=== PATIENT | female | born 1990 | race Caucasian/White ===

== ENCOUNTER 2021-07-30 14:40 | Outpatient (CLI) | payer OTHER, SELFPAY ==
--- NOTE | 2021-07-30 14:58 | OB.TRI.NOTE ---
HPI - General HPI Narrative DOROTHEA MANDUJANO, is a 31 F at 30.5 who presents with N/V and inability to keep any food or liquids down in 24 hours. COVID-19 positive on 07/26/21. She reports feeling shaky and dizzy. Has vomited bile several times today. Highest temperature has been 99.9 F. Positive movement. No obstetrical concerns today. PFSH PFSH Home Medications citalopram [Celexa] 30 mg PO DAILY 07/30/21 [History Last Taken 07/29/21 21:00] Allergy/AdvReac Type Severity Reaction Status Date / Time azithromycin [From Zithromax] Allergy Hives Verified 07/30/21 15:34 codeine Allergy Hives Verified 07/30/21 15:34 hydrocodone bitartrate Allergy Hives Verified 07/30/21 15:34 [From Vicodin] ketamine Allergy Anaphylaxis Verified 07/30/21 15:34 ketorolac tromethamine Allergy Anaphylaxis Verified 07/30/21 15:34 [From Toradol] meperidine HCl [From Demerol] Allergy Anaphylaxis Verified 07/30/21 15:34 oxycodone HCl [From Percocet] Allergy Hives Verified 07/30/21 15:34 propoxyphene napsylate Allergy Hives Verified 07/30/21 15:34 [From Darvocet-N] Sulfa (Sulfonamide Allergy Hives Verified 07/30/21 15:34 Antibiotics) Social History Smoking Status: Never smoker ROS ROS Narrative COVID-19 - Positive 07/26/21 Eyes Eyes: Denies blurry vision Cardiovascular Cardiovascular: Reports none; Denies chest pain at rest, chest pain with activity or dizziness Respiratory/Chest Respiratory/Chest: Denies cough or dyspnea Gastrointestinal Gastrointestinal: Reports nausea, taste impaired and vomiting Genitourinary Genitourinary: Denies dysuria Musculoskeletal Musculoskeletal: Reports none Integumentary Integumentary: Reports none; Denies rash Psychiatric Psychiatric: Reports none Physical Exam Const alert General Appearance: cooperative Orientation / Consciousness: awake Exam Limitations: no limitations HEENT normocephalic Eyes General Eye: normal appearance of both eyes Neck full ROM Chest inspection of chest normal Resp normal respiratory effort and normal air movement Effort and Inspection: symmetric chest movement and actively coughing Cardio regular rate GI Inspection: and other Back/Spine normal ROM Extremity full ROM, normal capillary refill and no calf tenderness Skin no rashes or lesions noted Neuro oriented x3 and CN's II-XII intact bilaterally Psych mental status grossly normal NST FHR Rate Baby A Baseline: 150 Variability:: Moderate Accelerations:: 15 x 15 Decelerations:: None NST Reactive:: Yes Uterine Activity:: None noted Assessment & Plan (1) 30 weeks gestation of : (2) COVID-19 affecting , antepartum: (3) Nausea and vomiting: PLAN: Start IV - Normal Saline 1000 mg bolus IV Labs- within normal limits Zofran 4 mg IV x1 now NST- Reactive Dr. Angel notified and involved in plan of care
[2021-07-30 15:29] VITALS: BMI 46.6
[2021-07-30] MEDS: 0.9% Normal Saline 1,000 ML 999 ML IV ×2 (15:45→17:32)
[2021-07-30] MEDS: Ondansetron 4 MG/2 ML Vial IV (15:53)
[2021-07-30 15:58] VITALS: PULSE 108; TEMP 36.3
[2021-07-30 16:00] VITALS: BP 132/65; PULSE 108
[2021-07-30 16:05] LABS: Absolute Neutrophil Count 3.6 X10^3/uL (2.0-7.7); Basophil# 0.02 X10^3/uL; Basophil% 0.4 % (0-1); Hematocrit 35.2 % (37-47); Hemoglobin 11.9 g/dL (12.0-15.0); Lymphocyte % 10.8 % (19-41); Mean Corp Hgb Conc 33.8 g/dL (32-36); Mean Corpuscular Hgb 29.3 pg (27.0-32.0); Mean Corpuscular Volume 86.7 fL (81-99); Mean Platelet Vol. 11.6 fl (6.2-12.0); Monocyte# 0.25 X10^3/uL; Monocyte% 5.4 % (0-10); NRBC Flagged by Analyzer 0 % (0-5); Neutrophil # 3.64 X10^3/uL (2.7-7.7); Neutrophil % 78.9 % (47-70); POSITIVE COUNT YES; POSITIVE DIFFERENTIAL YES; Platelet Count 117 K/mm3 (150-450); RBC Distribution Width CV 13.9 % (11.6-14.6); RBC Distribution Width SD 43.7 fl (35.1-43.9); Red Blood Count 4.06 M/mm3 (4.2-5.4); White Blood Count 4.6 K/mm3 (4.4-11.0)
[2021-07-30 16:08] LABS: Differential Indicated SCAN CRITERIA MET
[2021-07-30 16:11] LABS: Anion Gap 10 (5-15); BUN 6 mg/dL (7-18); BUN/Creat Ratio 8.1 RATIO (10-20); Calcium,Total 8.6 mg/dL (8.5-10.1); Chloride 105 mmol/L (98-107); Creatinine, Serum 0.74 mg/dL (0.55-1.02); EST Glomerular Filtration Rate 97 mL/min (>60); Est Glom Filt Rate - Afr Amer 118 mL/min (>60); Estimated Creatinine Clearance 111.12 ml/min; Glucose 104 mg/dL (74-106); Potassium 3.6 mmol/L (3.5-5.1); Sodium Level 139 mmol/L (136-145)
[2021-07-30 16:30] LABS: Differential Comment SCANNED
== END 2021-07-30 18:45 | disposition home or self-care (01) ==
LOC: WPOUT 14:42 → WP 14:43
PROVIDERS: PCP Internal Medicine; Visit Provider Advanced Practice Midwife
DX: O21.2 Late vomiting of pregnancy (principal); O98.513 Other viral diseases complicating pregnancy, third trimester; U07.1 COVID-19; Z3A.30 30 weeks gestation of pregnancy
CPT/HCPCS: 96361; 96374; 36415; 59025; 59050; 80048; 85025; 99218; J7030; G0378; J2405

== ENCOUNTER 2021-08-01 22:11 | Emergency (ER) | payer OTHER, SELFPAY ==
[2021-08-01 22:12] VITALS: BP 147/79; PULSE 95; RESP 26; TEMP 36.1; O2SAT 94; BMI 46.6
--- NOTE | 2021-08-01 22:29 | EKG12_ITS ---
Test Reason : SOB Blood Pressure : / mmHG Vent. Rate : 097 BPM Atrial Rate : 097 BPM P-R Int : 142 ms QRS Dur : 096 ms QT Int : 376 ms P-R-T Axes : 032 031 013 degrees QTc Int : 477 ms Normal sinus rhythm Normal ECG Confirmed by LYNN SIMS MD ([id number]), field map editor ILEANA OSBORN ([id number]) on 08/03/2021 1:52:33 PM Referred By: MR Confirmed By:LYNN SIMS MD
--- NOTE | 2021-08-01 22:44 | ED.VIS.DYS ---
HPI History of Present Illness Chief Complaint: Shortness of Breath Narrative Narrative: Patient presenting for evaluation secondary to COVID-19 infection, cough, shortness of breath, vomiting, and hemoptysis. Patient is a G3, P1 currently at 31 weeks gestation. Patient reports that she got her first coronavirus vaccine on the of this month and then can contracted Covid on the and tested positive. Patient states since then she has been having cough shortness of breath nausea and vomiting. Patient actually had to have a stay at labor and delivery where she required IV hydration. Patient reports that more recently she has been developing some hemoptysis and worsening shortness of breath and her table games shift manager recommended that she come to the emergency department for further evaluation. Patient denies significant chest pain associated with this. She denies any complaints, states that she is still feeling movement, denies that she has had any sort of vaginal bleeding or fluid loss. Patient is still having fevers and body aches associated with this. Review of systems otherwise negative. PFSH PFSH Home Medications citalopram [Celexa] 30 mg PO DAILY 07/30/21 [History Last Taken 07/29/21 21:00] promethazine 25 mg PO Q6H PRN PRN #10 tablet 08/02/21 [Rx Last Taken Unknown] Allergy/AdvReac Type Severity Reaction Status Date / Time azithromycin [From Zithromax] Allergy Hives Verified 08/01/21 22:12 codeine Allergy Hives Verified 08/01/21 22:12 hydrocodone bitartrate Allergy Hives Verified 08/01/21 22:12 [From Vicodin] ketamine Allergy Anaphylaxis Verified 08/01/21 22:12 ketorolac tromethamine Allergy Anaphylaxis Verified 08/01/21 22:12 [From Toradol] meperidine HCl [From Demerol] Allergy Anaphylaxis Verified 08/01/21 22:12 oxycodone HCl [From Percocet] Allergy Hives Verified 08/01/21 22:12 propoxyphene napsylate Allergy Hives Verified 08/01/21 22:12 [From Darvocet-N] Sulfa (Sulfonamide Allergy Hives Verified 08/01/21 22:12 Antibiotics) Social History Smoking Status: Never smoker ROS ROS ED Constitutional Constitutional ED: Reports chills, fever(s) and sweats ENT ENT ED: Denies rhinorrhea Cardiovascular Cardiovascular: Denies chest pain Respiratory/Chest Respiratory/Chest: Reports cough and dyspnea Gastrointestinal Gastrointestinal: Reports nausea and vomiting Genitourinary Genitourinary ED: Denies dysuria or hematuria Musculoskeletal Musculoskeletal: Reports myalgias Integumentary Denies rash Neurologic Neurologic: Denies paresthesias or weakness Psychiatric Psychiatric: Denies depression Endocrine Endocrinology: Denies fatigue Allergic/Immunologic Allergic/Immunologic ED: Denies urticaria EXAM Physical Exam Const Vital Signs: 08/01/21 22:12 08/01/21 23:09 08/02/21 00:18 Temperature 97.0 F L 97.8 F Temperature Source Temporal Oral Pulse Rate 95 91 90 Respiratory Rate 26 H 30 H 25 H Blood Pressure 147/79 H 131/91 H 136/68 H Blood Pressure Mean 101 104 90 Pulse Ox 94 92 94 Oxygen Delivery Method Room Air Room Air Room Air Positive well nourished and well developed Constitutional Narrative: Gravid female not acutely distressed General Appearance ED: well developed and NAD HEENT Reports dry mucous membranes Negative for trauma or tenderness Mouth ED: Yes dry mucous membranes Mouth: dry mucous membranes Eyes EOMs intact bilaterally Neck no lymphadenopathy, supple and no JVD Chest Wall inspection of chest normal Resp normal respiratory effort and clear to auscultation bilaterally Cardio regular rate, regular rhythm, no murmurs and peripheral pulses 2+ throughout GI normal to inspection, nondistended, normoactive bowel sounds, non-tender and no masses Palpation: soft Back/Spine normal to inspection Extremity normal to inspection General Extremety ED: Negative for tenderness Neuro oriented x3 and no sensory deficits noted Sensorium / Orientation: alert Motor Exam: strength 5/5 throughout Psych mental status grossly normal Skin no rashes or lesions noted, no wounds and skin turgor normal Lesions: no lesions Rashes: no rashes MDM MDM MDM Narrative Medical decision making narrative: Patient presented due to concerns of worsening shortness of breath and hemoptysis in the setting of coronavirus and . Patient states that she still has positive movement, and does not have any related complaints currently. She does not have hypoxia she has otherwise stable vital signs in the emergency department. She was given Tylenol and 2 L of lactated Ringer's. CBC was unremarkable no leukocytosis D-dimer unfortunately was found to be positive, chemistry shows the patient have mild hypokalemia at 3.2 and modest elevation of her alkaline phosphatase at 132. Patient does not have evidence currently of preeclampsia. CT angiogram of the chest was performed and did not demonstrate any evidence of pulmonary emboli, but does show a significant amount of bilateral infiltrates consistent with the patient's Covid pneumonia. Patient does not meet any sort of inpatient criteria currently she is not hypoxic dehydrated or otherwise requiring inpatient management. She does not meet criteria for treatment with steroids, but I believe that given her severity of her symptoms and her CT scan, her status, and the fact that she is only at 7 days of symptoms that she would benefit from monoclonal antibody infusion. I did discuss this with the covering provider for [facility] TELEPRINTER, Nurse Cook Short Order Ricci, who stated that she would run this by maternal- medicine but did also feel that this was indicated. Patient was provided with an incentive spirometer. I informed the patient that it is very important to continue changing position, ambulating, taking all of her home medications. I offered the patient rectal Phenergan to assist with her nausea and vomiting, she adamantly declined this. Patient will continue to closely follow with TELEPRINTER. Patient was discharged in improved condition. Lab Data Labs: Laboratory Results - last 24 hr 08/01/21 08/01/21 08/01/21 22:40 22:40 22:40 WBC 7.1 RBC 4.44 Hgb 12.7 Hct 37.8 MCV 85.1 MCH 28.6 MCHC 33.6 RDW Std Deviation 43.3 RDW Coeff of Susan 13.8 Plt Count 154 MPV 10.6 D-Dimer Quant (PE/DVT) 2.90 H* Sodium 140 Potassium 3.2 L Chloride 107 Carbon Dioxide 24.0 Anion Gap 9 BUN 6 L Creatinine 0.66 Estim Creat Clear Calc 124.59 Est GFR (MDRD) Af Amer 133 Est GFR (MDRD) Non-Af 110 BUN/Creatinine Ratio 9.0 L Glucose 99 Calcium 8.4 L Total Bilirubin 0.50 AST 40 H ALT 20 Alkaline Phosphatase 132 H Troponin I High Sens 4 Total Protein 6.9 Albumin 2.4 L Globulin 4.5 H Albumin/Globulin Ratio 0.5 L Radiography Diagnostic Testing: Clinical Impression(s) from Imaging Studies Chest CTA 08/01/21 23:12 IMPRESSION: No demonstrated pulmonary embolism or arterial dissection. Ill-defined subpleural groundglass opacities are seen more prominent in the lung bases , may represent atypical pneumonia or viral pneumonia (COVID-19 ?). Electronically Signed: Deborah Vanessa MD at 0:18 EDT Tel , Service support , EKG Initial EKG: Attestation: I personally reviewed and interpreted this EKG as follows: (Sinus rhythm [address] segments normal T waves normal ME and QTc intervals no evidence of right ventricular strain or ischemic changes) Discharge Plan Triage Chief Complaint: Shortness of Breath ED Provider: Andrew Christianson Dx/Rx/DC Orders Clinical Impression: COVID-19 affecting , antepartum, Nausea and vomiting Instructions: Coronavirus Disease 2019 (COVID-19): Caring for Yourself or Others, Coronavirus Disease 2019 COVID-19 and Childbirth Prescriptions: New promethazine 25 mg tablet 25 mg PO Q6H PRN PRN (Reason: Nausea) Qty: 10 RF: 0 No Action citalopram [Celexa] 40 mg Tablet 30 mg PO DAILY RF: 0 Other Ambulatory Orders: COVID Outpatient Monoclonal Antibody Referral (Routine) Timeframe: 1 Day Facility: [facility] - Location: [facility] Ordered By: Dr. Andrew Christianson Primary Care Provider: Renee Tipton Referrals: Yuly Freire MD [STAFF PHYSICIAN] - As soon as possible Renee Tipton PA [Primary Care Provider] - Disposition Disposition: Home, Self Care
[2021-08-01 22:55] LABS: Hematocrit 37.8 % (37-47); Hemoglobin 12.7 g/dL (12.0-15.0); Mean Corp Hgb Conc 33.6 g/dL (32-36); Mean Corpuscular Hgb 28.6 pg (27.0-32.0); Mean Corpuscular Volume 85.1 fL (81-99); Mean Platelet Vol. 10.6 fl (6.2-12.0); Platelet Count 154 K/mm3 (150-450); RBC Distribution Width CV 13.8 % (11.6-14.6); RBC Distribution Width SD 43.3 fl (35.1-43.9); Red Blood Count 4.44 M/mm3 (4.2-5.4); White Blood Count 7.1 K/mm3 (4.4-11.0)
[2021-08-01] MEDS: Lactated Ringers 1,000 ML 999 ML IV (23:00)
[2021-08-01] MEDS: Ondansetron 4 MG/2 ML Vial IV (23:08)
[2021-08-01] MEDS: Acetaminophen 500 MG Tablet 1000 MG PO (23:08)
[2021-08-01 23:09] VITALS: BP 131/91; PULSE 91; RESP 30; O2SAT 92
--- NOTE | 2021-08-01 23:12 | CT_ITS ---
STUDY: CTA CHEST REASON FOR EXAM: Female, 31 years old. hemoptysis RADIATION DOSAGE (If Supplied By Facility): CTDIvol = ( 21.43 ) mGy, DLP = ( 720.42 ) mGycm TECHNIQUE: The examination was performed with the intravenous administration of IV 100mL Isovue-370. Post-processing of the angiographic images was performed, with multiplanar reformation and 3D reconstruction. Individualized dose optimization techniques were used for this CT. COMPARISON: None. FINDINGS: Normal enhancement of the main pulmonary artery and right and left pulmonary arteries. Normal enhancement of the bilateral peripheral pulmonary arteries. There is no demonstrated pulmonary embolism. Normal thoracic aorta and visualized great vessels. There is no demonstrated aortic dissection. Normal heart and pericardium. Normal mediastinum. Normal hilar regions. Normal visualized trachea and bronchi. The lungs are well expanded. Ill-defined subpleural groundglass opacities are seen more prominent in the lung bases , may represent atypical pneumonia or viral pneumonia (COVID-19 ?). Normal pleura. Normal chest wall structures. Normal osseous structures. Normal visualized upper abdomen. CT/CTA Chest W/WO Contrast IMPRESSION: No demonstrated pulmonary embolism or arterial dissection. Ill-defined subpleural groundglass opacities are seen more prominent in the lung bases , may represent atypical pneumonia or viral pneumonia (COVID-19 ?). Electronically Signed: Deborah Vanessa MD at 0:18 EDT Tel , Service support ,
[2021-08-01 23:14] LABS: ALB/GLOB Ratio 0.5 RATIO (0.9-2.4); AST(SGOT) 40 U/L (15-37); Alanine Aminotransfer ALT/SGPT 20 U/L (13-56); Albumin, Serum 2.4 g/dL (3.2-5.0); Alkaline Phosphatase 132 U/L (45-117); Anion Gap 9 (5-15); BUN 6 mg/dL (7-18); Calcium,Total 8.4 mg/dL (8.5-10.1); Chloride 107 mmol/L (98-107); Creatinine, Serum 0.66 mg/dL (0.55-1.02); EST Glomerular Filtration Rate 110 mL/min (>60); Est Glom Filt Rate - Afr Amer 133 mL/min (>60); Estimated Creatinine Clearance 124.59 ml/min; Globulin 4.5 g/dL (2.2-4.2); Glucose 99 mg/dL (74-106); Potassium 3.2 mmol/L (3.5-5.1); Protein, Total 6.9 g/dL (6.4-8.2); Sodium Level 140 mmol/L (136-145); Troponin-I HS 4 pg/mL (3.0-54.0)
[2021-08-02] VITALS: PULSE 88; RESP 33; O2SAT 90
[2021-08-02 00:18] VITALS: BP 136/68; PULSE 90; RESP 25; TEMP 36.6; O2SAT 94
[2021-08-02] MEDS: Lactated Ringers 1,000 ML 999 ML IV (00:41)
== END 2021-08-02 01:37 | disposition home or self-care (01) ==
PROVIDERS: Emergency Provider Emergency Medicine; PCP Physician Assistant Medical
DX: O98.513 Other viral diseases complicating pregnancy, third trimester (principal); U07.1 COVID-19; O21.2 Late vomiting of pregnancy; Z3A.31 31 weeks gestation of pregnancy
CPT/HCPCS: 71275; 80053; 84484; 85027; 85379; 93005; 96361; 96374; 99283; J7120; Q9967; A4216; J2405

== ENCOUNTER 2021-08-03 15:22 | Outpatient (CLI) | payer OTHER, SELFPAY ==
[2021-08-03] MEDS: 0.9% Saline Lock 10 ML Syringe IV (15:37)
[2021-08-03 15:39] VITALS: BP 141/79; PULSE 90; RESP 18; TEMP 36.8; O2SAT 95; BMI 46.6
[2021-08-03 16:30] VITALS: BP 130/83; PULSE 81; RESP 16; TEMP 36.4; O2SAT 96
[2021-08-03 17:23] VITALS: BP 139/72; PULSE 88; RESP 16; TEMP 36.8; O2SAT 98
== END 2021-08-03 17:30 | disposition home or self-care (01) ==
LOC: MS3OUT 15:23 → MS3 15:23
PROVIDERS: PCP Physician Assistant Medical; Referring Provider Nurse Practitioner Adult Health; Visit Provider Nurse Practitioner Adult Health
DX: Z23 Encounter for immunization (principal); U07.1 COVID-19
CPT/HCPCS: J7050; M0245; Q0245; A4216

== ENCOUNTER → 2021-08-05 14:36 | Outpatient (CLI) | payer OTHER, SELFPAY ==
--- NOTE | 2021-08-05 14:42 | US_ITS ---
STUDY: OBSTETRICAL ULTRASOUND - BIOPHYSICAL PROFILE REASON FOR EXAM: Female, 31 years old NON REACTIVE NST LMP: 12/27/2020 PRIOR ULTRASOUND: None. TECHNIQUE: Transabdominal TECHNICAL QUALITY: Adequate. FINDINGS: There is a single intrauterine fetus. The fetus is in a cephalic presentation. There is demonstrated cardiac activity with a heart rate of 150 bpm. There is a normal amniotic fluid volume. The largest amniotic fluid pocket measures 3.2 cm. The amniotic fluid index (PHILL) is 9.8 cm. The placenta is anterior in location and is not low lying. There are Grade 2 placental changes. Age by LMP: 31 weeks, 4 days. ARABELLA by LMP: 10/03/2021. BIOPHYSICAL PROFILE: Breathing Movements (FBM): 2 Gross Body Movements (GBM): 2 Tone (FT): 2 Amniotic Fluid Volume (AFV): 2 TOTAL SCORE: 8 / 8 US/Biophysical Prof W/O Non Stres IMPRESSION: Normal biophysical profile of 8/8. Electronically Signed: Nolan Quinn MD at 16:10 EDT Tel , Service support ,
== END ==
LOC: US 14:40
PROVIDERS: PCP Physician Assistant Medical; Referring Provider Obstetrics & Gynecology; Visit Provider Obstetrics & Gynecology
DX: O09.893 Supervision of other high risk pregnancies, third trimester (principal); Z3A.31 31 weeks gestation of pregnancy
CPT/HCPCS: 76819

== ENCOUNTER 2022-02-06 07:57 | Emergency (ER) | payer OTHER, SELFPAY ==
[2022-02-06 07:57] VITALS: BP 161/110; PULSE 109; RESP 20; TEMP 36.4; O2SAT 98; BMI 49.3
[2022-02-06] MEDS: Morphine 4 MG/ML Syringe 6 MG IM (08:51)
[2022-02-06] MEDS: Ondansetron ODT 4 MG Tablet PO (08:51)
--- NOTE | 2022-02-06 09:29 | EDS_ITS ---
HPI History of Present Illness Chief Complaint: Back Informant: patient Narrative Narrative: Patient is a 32-year-old female with no significant past medical history presenting with back pain. Patient states she tripped on the stairs holding her 5-month-old a couple weeks ago. She jolted her back. She did not actually fall or hit anything. She states she been alternating ibuprofen and Tylenol as well as using Voltaren gel, Lidoderm patches and heat. This morning she woke up and her back and completely spasmed up. She was in intractable pain and describes white lightening radiating down her legs, right worse than left. Denies any bowel or bladder incontinence. Denies any numbness or weakness of her legs. Denies any new injury. No other complaints at this time. PFSH PFSH Home Medications cyclobenzaprine 10 mg PO TID PRN #20 tab 02/06/22 [Rx Last Taken Unknown] etonogestrel [Nexplanon] 68 mg SUBDERMAL X1 02/06/22 [History Last Taken Unknown] prednisone 40 mg PO DAILY #8 tab 02/06/22 [Rx Last Taken Unknown] Allergy/AdvReac Type Severity Reaction Status Date / Time azithromycin [From Zithromax] Allergy Hives Verified 02/06/22 08:05 codeine Allergy Hives Verified 02/06/22 08:05 hydrocodone bitartrate Allergy Hives Verified 02/06/22 08:05 [From Vicodin] ketamine Allergy Anaphylaxis Verified 02/06/22 08:05 ketorolac tromethamine Allergy Anaphylaxis Verified 02/06/22 08:05 [From Toradol] meperidine HCl [From Demerol] Allergy Anaphylaxis Verified 02/06/22 08:05 oxycodone HCl [From Percocet] Allergy Hives Verified 02/06/22 08:05 propoxyphene napsylate Allergy Hives Verified 02/06/22 08:05 [From Darvocet-N] Sulfa (Sulfonamide Allergy Hives Verified 02/06/22 08:05 Antibiotics) Surgical History H/O emergency section Social History Smoking Status: Never smoker ROS ROS ED Constitutional Constitutional ED: Denies chills or fever(s) Eyes Eyes: Denies change in vision ENT ENT ED: Denies rhinorrhea or sore throat Cardiovascular Cardiovascular: Denies chest pain Respiratory/Chest Respiratory/Chest: Denies dyspnea Gastrointestinal Gastrointestinal: Reports nausea; Denies abdominal pain, diarrhea or vomiting Genitourinary Genitourinary ED: Denies dysuria or urinary frequency Musculoskeletal Musculoskeletal: Reports back pain; Denies arthralgias or myalgias Integumentary Denies rash Neurologic Neurologic: Denies headache(s), paresthesias or weakness Psychiatric Psychiatric: Denies anxiety or depression EXAM Physical Exam Const Vital Signs: 02/06/22 07:57 02/06/22 09:47 Temperature 97.6 F L Temperature Source Temporal Pulse Rate 109 H Respiratory Rate 20 H Blood Pressure 161/110 H 158/90 H Blood Pressure Mean 127 Pulse Ox 98 Oxygen Delivery Method Room Air Positive well nourished and well developed General Appearance ED: well developed and other Mild distress secondary to pain, patient cannot lay down in the bed. HEENT Reports moist mucous membranes Negative for trauma Eyes PERRL and EOMs intact bilaterally Neck supple Neck Narrative: Normal range of motion, no midline tenderness Resp normal respiratory effort and clear to auscultation bilaterally Cardio regular rate, regular rhythm and no murmurs GI normal to inspection, nondistended, normoactive bowel sounds, soft to palpation and no masses Back/Spine Back/Spine Narrative: Patient is bilateral paraspinal muscle tenderness, no midline tenderness. Tenderness is worse on the right compared to the left. It is in the lower thoracic as well as lumbar region. Paraspinal spasm appreciated on physical exam. Cervical Spine: Negative for cervical spine tenderness Thoracic Spine / Upper Back: paraspinal muscle tenderness Extremity normal to inspection Extremity Narrative: Patient able to walk without any difficulty, able to go from sitting to standing without significant difficulty. General Extremety ED: Negative for edema or tenderness General Extremity: Negative for edema Psych mental status grossly normal Skin no rashes or lesions noted and no wounds MDM MDM MDM Narrative Medical decision making narrative: Patient is evaluated for back pain. She is given IM morphine and Zofran for symptoms. She does have significant improvement. She is then given a dose of Flexeril as well as prednisone. As she has the pain range underlying she will be treated with steroids as well as muscle relaxers. She is given a work note for today and the following 2 days. She is counseled on continued heat therapy as well as alternate Tylenol and ibu profen. Her mother can help her watch her 5-month-old. She states she is not breast-feeding. Patient denies any other complaints at this time. She does not have findings concerning for cauda equina syndrome. She does not have any focal neurologic deficits. I do not think imaging is indicated at this time. Will be discharged home with outpatient management. She is agreeable this plan of care. Discharge Plan Triage Chief Complaint: Back ED Provider: Laurel Tarango Dx/Rx/DC Orders Clinical Impression: Acute bilateral low back pain, Back muscle spasm Instructions: ED Back Spasm, No Trauma Prescriptions: New prednisone 20 mg tablet 40 mg PO DAILY Qty: 8 RF: 0 cyclobenzaprine 10 mg tablet 10 mg PO TID PRN (Reason: muscle spasm) Qty: 20 RF: 0 No Action Nexplanon 68 mg Implant 68 mg SUBDERMAL X1 RF: 0 Primary Care Provider: Renee Tipton Referrals: Renee Tipton PA [Primary Care Provider] - Disposition Disposition: Home, Self Care Discharge Date/Time: 02/06/22 09:52
[2022-02-06] MEDS: predniSONE 20 MG Tablet 60 MG PO (09:46)
[2022-02-06] MEDS: cycloBENZAPRine HCl 10 MG Tablet PO (09:46)
[2022-02-06 09:47] VITALS: BP 158/90
== END 2022-02-06 09:52 | disposition home or self-care (01) ==
PROVIDERS: Emergency Provider Emergency Medicine; PCP Physician Assistant Medical; Visit Provider Emergency Medicine
DX: M54.50 Low back pain, unspecified (principal); M62.830 Muscle spasm of back
CPT/HCPCS: 96372; 99283